=== PATIENT | female | born 1995 | race Caucasian/White ===

== ENCOUNTER → 2017-03-19 | Outpatient (CLI) | payer OTHER ==
[2017-03-19 09:45] LABS: CH 31.5; CHCM 33.5; HCT 36.6 % (34.0-46.0); HDW 2.97; HGB 12.1 gm/dL (11.4-16.0); MCH 31.4 pg (25.0-35.0); MCHC 33.1 g/dL (31.0-37.0); MCV 94.7 fL (80.0-100.0); Mean Platelet Volume 8.3; RBC 3.86 m/uL (3.80-5.40); RDW 15.3 % (11.5-15.5); WBC 7.8 k/uL (3.8-10.6)
[2017-03-19 10:10] LABS: Glucose 84 mg/dL (74-99); Non-African American GFR(MDRD) >60 (>60 ml/min/1.73 sqM)
[2017-03-19 15:55] LABS: Treponemal Ab Non-Reactive (Non-Reactive)
== END | disposition home or self-care (01) ==
LOC: LABWHC1 09:13
PROVIDERS: ATTEND Obstetrics & Gynecology
DX: O26.812 Pregnancy related exhaustion and fatigue, second trimester (principal); Z3A.00 Weeks of gestation of pregnancy not specified
CPT/HCPCS: 36415; 82565; 82947; 85027; 86762; 86777; 86778; 86780; 86850; 86900; 86901; 87340; 87390

== ENCOUNTER 2017-09-11 10:03 | Inpatient (IN) | payer OTHER ==
[2017-09-11 10:31] LABS: Appearance,Urine Cloudy (Clear); Bacteria,Urine Rare /hpf; Bilirubin,Urine Negative (Negative); Blood,Urine Small (Negative); Color,Urine Yellow; Glucose,Urine (UA) Negative (Negative); Ketones,Urine Negative (Negative); Leukocyte Esterase,Urine Moderate (Negative); Mucus,Urine Many /hpf; Nitrite,Urine Negative (Negative); Protein,Urine 3+ (Negative); RBC,Urine 6 /hpf (0-5); Specific Gravity,Urine 1.027 (1.001-1.035); Squamous Epithelial Cell,Urine 13 /hpf (0-4); Urobilinogen,Urine <2.0 mg/dL (<2.0); WBC,Urine 22 /hpf (0-5)
[2017-09-11] MEDS ORDERED: LABETALOL 5 MG/ML VIAL MDV IVP PRN ×2 (11:00→11:24)
[2017-09-11 11:02] LABS: Anisocytosis Slight; Basophils % (A) 0 %; Eosinophils % (A) 0 %; HCT 33.5 % (34.0-46.0); HGB 11.2 gm/dL (11.4-16.0); Lymphocytes # (A) 1.9 k/uL (1.0-4.8); Lymphocytes % (A) 21 %; MCH 31.7 pg (25.0-35.0); MCHC 33.5 g/dL (31.0-37.0); MCV 94.6 fL (80.0-100.0); Mean Platelet Volume 8.2; Monocytes # (A) 0.3 k/uL (0-1.0); Monocytes % (A) 3 %; Neutrophils # (A) 6.6 k/uL (1.3-7.7); Neutrophils % (A) 74 %; Platelet Count 233 k/uL (150-450); Poikilocytosis Slight; RBC 3.54 m/uL (3.80-5.40); RDW 17.2 % (11.5-15.5); WBC 8.9 k/uL (3.8-10.6)
[2017-09-11] MEDS ORDERED: LABETALOL 5 MG/ML VIAL MDV ONE (11:03)
[2017-09-11 11:10] LABS: ALT 21 U/L (9-52); AST 22 U/L (14-36); Blood Urea Nitrogen 11 mg/dL (7-17); LDH 600 U/L (313-618)
[2017-09-11] MEDS ORDERED: CITRIC ACID-SODIUM CITRATE 15 ML CUP PO ONE (11:14)
[2017-09-11] MEDS ORDERED: KETOROLAC 30 MG/ML 1 ML VIAL ONE (11:40)
[2017-09-11] MEDS ORDERED: ONDANSETRON 4 MG/2 ML VIAL ONE (11:40)
[2017-09-11] MEDS ORDERED: OXYTOCIN 10 UNIT/ML 1 ML VIAL ONE (11:40)
[2017-09-11] MEDS ORDERED: MORPHINE SULFATE (PF) 0.3 MG/0.3 ML SYR ONE (11:40)
[2017-09-11] MEDS ORDERED: NALBUPHINE 10 MG/ML AMPUL ONE (11:40)
[2017-09-11 11:59] LABS: INR 0.9 (<1.2); Prothrombin Time 9.5 sec (9.0-12.0)
[2017-09-11 12:03] VITALS: BMI 44.9
[2017-09-11] MEDS ORDERED: CALCIUM CHLORIDE 500 MG in SODIUM CHLORIDE 0.9% 50 ML IVPB ONE (12:44)
[2017-09-11] MEDS ORDERED: MAGNESIUM SULFATE-WATER PMX 4 GM in WATER FOR INJECTION 1 50ML.BAG IVPB ONE (12:44)
[2017-09-11] MEDS ORDERED: diphenhydrAMINE 50 MG CAP PO PRN (12:46)
[2017-09-11] MEDS ORDERED: SIMETHICONE 80 MG CHEWABLE PO PRN (12:46)
[2017-09-11] MEDS ORDERED: Rhogam IMMUNE GLOBULIN 1,500 UNIT/1 ML IM ONE (12:46)
[2017-09-11] MEDS ORDERED: ZOLPIDEM 5 MG TAB PO PRN (12:46)
[2017-09-11] MEDS ORDERED: METOCLOPRAMIDE 5 MG/ML 2 ML VIAL IVP PRN (12:46)
[2017-09-11] MEDS ORDERED: diphenhydrAMINE 50 MG/ML 1 ML VIAL IVP PRN ×2 (12:46)
[2017-09-11] MEDS ORDERED: diphenhydrAMINE 25 MG CAP PO PRN (12:46)
[2017-09-11] MEDS ORDERED: NALOXONE 0.4 MG/ML 1 ML VIAL IV PRN (12:46)
[2017-09-11] MEDS ORDERED: ONDANSETRON 4 MG/2 ML VIAL IVP PRN (12:46)
[2017-09-11] MEDS ORDERED: LANOLIN CREAM 5 GM TUBE TOPICAL PRN (12:46)
[2017-09-11] MEDS ORDERED: ACETAMINOPHEN TAB 325 MG TAB PO PRN (12:46)
[2017-09-11] MEDS ORDERED: OXYTOCIN 20 UNITS/1000 ML NS 1,000 ML IV SCH (13:00)
[2017-09-11] MEDS: MAGNESIUM SULFATE-WATER PMX 20 GM in WATER FOR INJECTION 1 500ML.BAG IV SCH ×2 (13:28→23:03)
[2017-09-11] MEDS: LACTATED RINGERS 1,000 ML IV SCH ×2 (13:31→23:03)
[2017-09-11] MEDS: KETOROLAC 30 MG/ML 1 ML VIAL IVP SCH (18:23)
[2017-09-11] MEDS: SENNOSIDES-DOCUSATE SODIUM 1 EACH TAB PO SCH (21:23)
[2017-09-12] MEDS: KETOROLAC 30 MG/ML 1 ML VIAL IVP SCH ×3 (00:24→12:37)
[2017-09-12] MEDS: LACTATED RINGERS 1,000 ML IV SCH (06:29)
[2017-09-12 07:57] LABS: Anisocytosis Slight; Basophils % (A) 0 %; Eosinophils % (A) 0 %; HCT 28.3 % (34.0-46.0); Hypochromasia Slight; Lymphocytes # (A) 1.4 k/uL (1.0-4.8); Lymphocytes % (A) 19 %; MCH 31.3 pg (25.0-35.0); MCHC 32.4 g/dL (31.0-37.0); MCV 96.7 fL (80.0-100.0); Macrocytosis Slight; Mean Platelet Volume 8.1; Monocytes # (A) 0.3 k/uL (0-1.0); Monocytes % (A) 4 %; Neutrophils # (A) 5.5 k/uL (1.3-7.7); Neutrophils % (A) 75 %; Platelet Count 194 k/uL (150-450); Poikilocytosis Slight; RBC 2.93 m/uL (3.80-5.40); RDW 17.7 % (11.5-15.5); WBC 7.3 k/uL (3.8-10.6)
[2017-09-12 07:58] LABS: HGB 9.2 gm/dL (11.4-16.0)
[2017-09-12] MEDS: SENNOSIDES-DOCUSATE SODIUM 1 EACH TAB PO SCH ×2 (08:25→11:31)
--- NOTE | 2017-09-12 09:03 | P.HPOB ---
History of Present Illness H&P Date: 09/11/17 Chief Complaint: elevated BP 22-year-old presented to my office at 38 weeks and 3 days with an elevated blood pressure of 142/96. I further to triage for workup of preeclampsia. Her blood pressure upon arrival was 199/86. She continued to have elevated blood pressures of 150s over 100s and 160s over 90s. Most of her labs were normal except for a PC ratio of over 2. She was diagnosed with preeclampsia. heart tones were 100 4145 with moderate variability and reactive. Her cervix was closed thick and high. She was given IV labetalol to help try and control her blood pressures. Due to the fact that she is remote from delivery and has severe preeclampsia a section will be performed immediately and then she'll be placed on magnesium sulfate for seizure prophylaxis. Review of Systems All systems: negative Constitutional: Denies chills, Denies fever Eyes: denies blurred vision, denies pain Ears, nose, mouth and throat: Denies headache, Denies sore throat Cardiovascular: Denies chest pain, Denies shortness of breath Respiratory: Denies cough Gastrointestinal: Denies abdominal pain, Denies diarrhea, Denies nausea, Denies vomiting Genitourinary: Denies dysuria, Denies hematuria Musculoskeletal: Denies myalgias Integumentary: Denies pruritus, Denies rash Neurological: Denies numbness, Denies weakness Psychiatric: Denies anxiety, Denies depression Endocrine: Denies fatigue, Denies weight change Past Medical History Past Medical History: No Reported History Additional Past Medical History / Comment(s): Obstetric history: This is to place first , she's had care with me since 14 weeks gestation. Blood type is A-, antibodies negative, rubella immune, treponema antibody negative, hepatitis B negative, HIV negative, toxoplasmosis negative. Normal 1 hour glucose tolerance test, program given on 07/08/2017 at 29 weeks. History of Any Multi-Drug Resistant Organisms: None Reported Past Surgical History: No Surgical Hx Reported Past Anesthesia/Blood Transfusion Reactions: No Reported Reaction Smoking Status: Never smoker Past Alcohol Use History: None Reported Past Drug Use History: None Reported - Past Family History Mother Family Medical History: No Reported History Medications and Allergies Allergies Allergy/AdvReac Type Severity Reaction Status Date / Time No Known Allergies Allergy Verified 09/11/17 10:15 Exam Osteopathic Statement: *. No significant issues noted on an osteopathic structural exam other than those noted in the History and Physical/Consult. - Vital Signs Vital signs: Vital Signs Temp Pulse Resp BP Pulse Ox 09/12/17 08:00 97.6 F 83 17 133/83 100 09/12/17 06:00 77 150/76 09/12/17 04:00 98.5 F 88 16 119/60 100 09/12/17 02:00 81 133/74 09/12/17 00:00 98.8 F 84 16 130/73 99 09/11/17 22:00 99 148/70 09/11/17 20:00 97.0 F L 83 16 130/92 99 09/11/17 18:17 98.3 F 82 17 147/81 98 09/11/17 16:30 98.5 F 79 17 147/72 97 09/11/17 14:34 96.1 F L 84 18 125/70 98 09/11/17 14:04 67 16 127/70 97 09/11/17 13:34 66 18 129/73 99 09/11/17 13:19 76 17 128/62 99 09/11/17 13:04 73 15 125/71 96 09/11/17 12:49 74 15 123/96 99 09/11/17 12:34 96.7 F L 88 17 125/90 100 09/11/17 10:03 96.7 F L 93 18 199/86 98 Intake and Output 09/11/17 09/12/17 09/12/17 22:59 06:59 14:59 Intake Total 779.167 Output Total 40 1000 600 Balance -40 -220.833 -600 Intake: Intake, IV Titration 479.167 Amount Magnesium Sulfate-Water 479.167 Pmx 20 gm In Water For Injection 1 500ml.bag @ 2 GM/HR 50 mls/hr IV .Q10H [facility] Rx#:[id number] Oral 300 Output: Urine 1000 600 Emesis 40 Other: Voiding Method Indwelling Catheter Heart: Regular rate and rhythm Lungs: Clear to auscultation bilaterally Abdomen: Soft, nontender Extremities: Negative Homans sign, 2+ pedal edema Results Result Diagrams: 09/12/17 07:34 09/11/17 10:40 Abnormal Lab Results - Last 24 Hours (Table) 09/11/17 09/11/17 09/11/17 Range/Units 10:16 10:18 10:40 RBC 3.54 L (3.80-5.40) m/uL Hgb 11.2 L (11.4-16.0) gm/dL Hct 33.5 L (34.0-46.0) % RDW 17.2 H (11.5-15.5) % Urine Appearance Cloudy H (Clear) Urine Protein 3+ H (Negative) Urine Blood Small H (Negative) Ur Leukocyte Esterase Moderate H (Negative) Urine RBC 6 H (0-5) /hpf Urine WBC 22 H (0-5) /hpf Ur Squamous Epith Cells 13 H (0-4) /hpf Urine Bacteria Rare H (None) /hpf Urine Mucus Many H (None) /hpf U Random Total Protein >600 H (<12) mg/dL 09/12/17 Range/Units 07:34 RBC 2.93 L (3.80-5.40) m/uL Hgb 9.2 L D (11.4-16.0) gm/dL Hct 28.3 L (34.0-46.0) % RDW 17.7 H (11.5-15.5) % Urine Appearance (Clear) Urine Protein (Negative) Urine Blood (Negative) Ur Leukocyte Esterase (Negative) Urine RBC (0-5) /hpf Urine WBC (0-5) /hpf Ur Squamous Epith Cells (0-4) /hpf Urine Bacteria (None) /hpf Urine Mucus (None) /hpf U Random Total Protein (<12) mg/dL Assessment and Plan (1) Severe preeclampsia Current Visit: Yes Status: Acute Code(s): O14.10 - SEVERE PRE-ECLAMPSIA, UNSPECIFIED TRIMESTER SNOMED Code(s): 82136073 (2) 38 weeks gestation of Current Visit: Yes Status: Acute Code(s): Z3A.38 - 38 WEEKS GESTATION OF SNOMED Code(s): 27097349 Plan: 1. Prep for primary low transverse 2. Monitor blood pressures closely 3. Will place on magnesium sulfate after delivery and seizure precautions
--- NOTE | 2017-09-12 09:06 | P.OP ---
Date of Procedure: 09/11/17 Preoperative Diagnosis: 1. at 38 and 3 2. Severe preeclampsia; remote from delivery Postoperative Diagnosis: 1. at 38 and 3 2. Severe preeclampsia; remote from delivery Procedure(s) Performed: Primary low transverse Anesthesia: spinal Surgeon: Bailey Wang Candy Vendor #1: Debra Anderson Estimated Blood Loss (ml): 500 IV fluids (ml): 900 Urine output (ml): 100 Pathology: other (Placenta) Condition: stable Disposition: floor Operative Findings: Viable female, Apgars 8, 8, weight 6 lbs. 13 oz. normal uterus, tubes, ovaries. Description of Procedure: Patient was taken to the operating room where spinal anesthesia was found be adequate. She was prepped and draped in normal sterile fashion in dorsal supine position with a leftward tilt. Pfannenstiel skin incision was made the scalpel and carried through to the underlying layer of fascia with the scalpel. Fascia was incised in midline and carried bilaterally with the Davis scissors. The superior aspect of the fascial incision was grasped with Alireza clamps elevated and the underlying rectus muscles dissected off with the Davis's. Attention was then turned to inferior aspect of same incision which in a similar fashion was grasped tented up and the underlying rectus muscles dissected off with the Davis's. The rectus muscles were the midline and the peritoneum was identified tented up and entered sharply with the scalpel. The incision was extended superiorly and inferiorly with good visualization of the bladder. The bladder blade was inserted and the vesicouterine peritoneum was incised the Metzenbaums then carried bilaterally and bladder flap created digitally. A low transverse incision was then made on the uterus with the scalpel. This was carried bilaterally and digital manner. 's head delivered atraumatically, nose and mouth bulb suctioned, cord clamped and cut, handed off to waiting nurses. Apgars 8,8, weight 6 lbs. 13 oz. Placenta delivered manually, intact with three-vessel cord. The uterus is exteriorized and cleared of all clots and debris. The uterine incision was closed with 0 Vicryl in a running locked fashion. Second layer of the same sutures used in imbricating fashion to obtain excellent hemostasis. Bladder flap was then reapproximated using 2-0 Vicryl in a running fashion. Both ovaries and tubes appeared normal. The uterus was placed back into the abdomen. The peritoneum was reapproximated using 2-0 Vicryl in a running fashion. The muscles were reapproximated using 2-0 Vicryl in interrupted fashion. The fascia was reapproximated using 0 Vicryl in a running fashion. The subcutaneous tissues closed with 3-0 Vicryl running fashion. The skin was closed vipul. Patient tolerated the procedure well, sponge and instrument counts were correct times 2 and she was taken to the recovery room in stable condition.
[2017-09-12] MEDS: MAGNESIUM SULFATE-WATER PMX 20 GM in WATER FOR INJECTION 1 500ML.BAG IV SCH ×2 (09:08→19:47)
--- NOTE | 2017-09-12 09:11 | P.PNOBGPC ---
Subjective - Subjective Principal diagnosis: Status post primary low transverse for severe preeclampsia POD #1 Interval history: Patient seen and examined. She's been magnesium sulfate since delivery. Her blood pressures have been within 116 over 60s to 130s over 80s. She did have one outlier of 150/90. Her pain is well-controlled and she is tolerating clear liquids, passing flatus. Patient reports: Reports appetite normal, Reports pain well controlled, Denies nauseated [place]: doing well Objective - Vital Signs Latest vital signs: Vital Signs Temp Pulse Resp BP Pulse Ox 09/12/17 08:00 97.6 F 83 17 133/83 100 09/12/17 06:00 77 150/76 09/12/17 04:00 98.5 F 88 16 119/60 100 09/12/17 02:00 81 133/74 09/12/17 00:00 98.8 F 84 16 130/73 99 09/11/17 22:00 99 148/70 09/11/17 20:00 97.0 F L 83 16 130/92 99 09/11/17 18:17 98.3 F 82 17 147/81 98 09/11/17 16:30 98.5 F 79 17 147/72 97 09/11/17 14:34 96.1 F L 84 18 125/70 98 09/11/17 14:04 67 16 127/70 97 09/11/17 13:34 66 18 129/73 99 09/11/17 13:19 76 17 128/62 99 09/11/17 13:04 73 15 125/71 96 09/11/17 12:49 74 15 123/96 99 09/11/17 12:34 96.7 F L 88 17 125/90 100 09/11/17 10:03 96.7 F L 93 18 199/86 98 Intake and Output 09/11/17 09/12/17 09/12/17 22:59 06:59 14:59 Intake Total 779.167 Output Total 40 1000 600 Balance -40 -220.833 -600 Intake: Intake, IV Titration 479.167 Amount Magnesium Sulfate-Water 479.167 Pmx 20 gm In Water For Injection 1 500ml.bag @ 2 GM/HR 50 mls/hr IV .Q10H [facility] Rx#:[id number] Oral 300 Output: Urine 1000 600 Emesis 40 Other: Voiding Method Indwelling Catheter - Exam Lungs: bilateral: normal Chest: Normal S1, Normal S2 Extremities: Present: normal Abdomen: Present: normal appearance, soft. Absent: distention, tenderness Incision: Present: normal, dry, intact Uterus: Present: normal, firm - Labs Labs: Abnormal Lab Results - Last 24 Hours (Table) 09/11/17 09/11/17 09/11/17 Range/Units 10:16 10:18 10:40 RBC 3.54 L (3.80-5.40) m/uL Hgb 11.2 L (11.4-16.0) gm/dL Hct 33.5 L (34.0-46.0) % RDW 17.2 H (11.5-15.5) % Urine Appearance Cloudy H (Clear) Urine Protein 3+ H (Negative) Urine Blood Small H (Negative) Ur Leukocyte Esterase Moderate H (Negative) Urine RBC 6 H (0-5) /hpf Urine WBC 22 H (0-5) /hpf Ur Squamous Epith Cells 13 H (0-4) /hpf Urine Bacteria Rare H (None) /hpf Urine Mucus Many H (None) /hpf U Random Total Protein >600 H (<12) mg/dL 09/12/17 Range/Units 07:34 RBC 2.93 L (3.80-5.40) m/uL Hgb 9.2 L D (11.4-16.0) gm/dL Hct 28.3 L (34.0-46.0) % RDW 17.7 H (11.5-15.5) % Urine Appearance (Clear) Urine Protein (Negative) Urine Blood (Negative) Ur Leukocyte Esterase (Negative) Urine RBC (0-5) /hpf Urine WBC (0-5) /hpf Ur Squamous Epith Cells (0-4) /hpf Urine Bacteria (None) /hpf Urine Mucus (None) /hpf U Random Total Protein (<12) mg/dL Assessment and Plan (1) Severe preeclampsia Current Visit: Yes Status: Acute Code(s): O14.10 - SEVERE PRE-ECLAMPSIA, UNSPECIFIED TRIMESTER SNOMED Code(s): 80793909 (2) 38 weeks gestation of Current Visit: Yes Status: Resolved Code(s): Z3A.38 - 38 WEEKS GESTATION OF SNOMED Code(s): 50133020 (3) Status post primary low transverse section Current Visit: Yes Status: Acute Code(s): Z98.891 - HISTORY OF UTERINE SCAR FROM PREVIOUS SURGERY SNOMED Code(s): 490336704 Plan: 1. We will discontinue magnesium sulfate today 2. Discontinue Nash catheter 3. The patient up out of bed and ambulating today 4. Monitor blood pressures closely and if her blood pressures rise may need to start a medication to keep them under control. 5. Start oral pain medication 6. Regular diet
--- NOTE | 2017-09-12 09:13 | P.MSEPDOC ---
Presenting Problems - Arrival Data Date of Arrival on Unit: 09/11/17 Time of Arrival on Unit: 11:00 Mode of Transport: Ambulatory - Complaint OB-Reason for Admission/Chief Complaint: NST, PIH Comment: Sent from office for pre-eclampsia labs by Dr. Wang Medical History - Information : 1 Para: 0 Term: 0 : 0 Abortions: Spontaneous or Elective: 0 Number of Living Children: 0 - Gestational Age Gestational Age by SHY (wks/days): 38 Weeks and 3 Days Review of Systems - Review of Systems Constitutional: No problems Breast: No problems ENT: No problems Cardiovascular: No problems Respiratory: No problems Gastrointestinal: No problems Genitourinary: No problems Musculoskeletal: No problems Neurological: No problems Skin: No problems Vital Signs - Temperature Temperature: 97.6 F Temperature Source: Oral - Pulse Pulse Oximetery Pulse Rate: 83 Pulse Assessment Method: Pulse Oximetry - Respirations Respiratory Rate: 17 Oxygen Delivery Method: Room Air O2 Sat by Pulse Oximetry: 100 - Blood Pressure Right Arm Blood Pressure: 133/83 Blood Pressure Mean: 99 Blood Pressure Source: Automatic Cuff Medical Screen Scoring (Pre) - Cervical Exam Dilation: Exam Deferred Effacement: Exam Deferred Membranes: Intact - Uterine Contractions Frequency: N/A Duration: N/A Intensity: N/A - Maternal Vital Signs Maternal Temperature: N/A Maternal Blood Pressure: Systolic >139 = 2 Signs of Preeclampsia: N/A Maternal Respirations: N/A - Pain Assessment Pain Scale Used: Numeric (1 - 10) Pain Intensity: 0 - Maternal Trauma Maternal Trauma: N/A - Assessment Baseline FHR: 140 Heart Rate - NICHD Category: Category I (Normal) = 0 NST: Reactive Position: N/A Station: N/A - Total Score Total Score (Pre): 2 - Level of Risk Level of Risk: Low (0-5) Physician Notification (Pre) - Physician Notified Physician Notified Date: 09/11/17 Physician Notified Time: 10:56 Physician/Practitioner Notifed:: Felipe Spoke With: Felipe - Notification Comment Comment: Patient was sent from office for labs. Order for PT/INR, labetolol. Disposition - Disposition OB Disposition: Admit I agree with the RN Medical Screening Exam: Yes Physician's MSE Comment: Pt was admitted and taken for due to severe pre-eclampsia and remote from delivery at 38 weeks 3 days Risk & Benefit of care provided described in d/c instruction: Yes Diagnosis: SEVERE PRE-ECLAMPSIA, UNSPECIFIED TRIMESTER
[2017-09-12] MEDS: HYDROcodone/APAP 7.5-325MG 1 EACH TAB PO PRN ×2 (11:31→18:55)
[2017-09-12] MEDS: IBUPROFEN 600 MG TAB PO PRN ×2 (15:19→23:31)
[2017-09-13] MEDS: HYDROcodone/APAP 7.5-325MG 1 EACH TAB PO PRN ×3 (04:56→18:56)
[2017-09-13] MEDS: SENNOSIDES-DOCUSATE SODIUM 1 EACH TAB PO SCH ×2 (08:33→19:53)
[2017-09-13] MEDS: IBUPROFEN 600 MG TAB PO PRN ×3 (08:34→21:22)
--- NOTE | 2017-09-13 10:01 | P.PNOBGPC ---
Subjective - Subjective Principal diagnosis: S/P 1*LTCS POD #2 Interval history: Pt seen and examined. Denies N/V, F/C, CP, SOB, calf pain. Patient reports: Reports appetite normal, Reports voiding normally, Reports pain well controlled, Reports ambulating normally [place]: doing well Objective - Vital Signs Latest vital signs: Vital Signs Temp Pulse Resp BP Pulse Ox 09/13/17 08:00 98.1 F 98 19 154/97 99 09/13/17 04:58 98.6 F 85 16 132/87 100 09/12/17 23:35 98.5 F 93 18 147/90 100 09/12/17 19:49 98.8 F 93 18 128/77 100 09/12/17 15:55 98.4 F 93 18 145/83 100 09/12/17 14:00 97.6 F 88 18 145/76 100 09/12/17 12:05 143/77 09/12/17 12:00 98.8 F 86 18 157/97 99 09/12/17 10:00 97.0 F L 91 18 137/82 99 Intake and Output 09/12/17 09/13/17 09/13/17 22:59 06:59 14:59 Output Total 800 Balance -800 Output: Urine 800 Other: # Voids 1 - Exam Lungs: bilateral: normal Chest: Normal S1, Normal S2 Extremities: Present: normal Abdomen: Present: normal appearance, soft. Absent: distention, tenderness Incision: Present: normal, dry, intact Uterus: Present: normal, firm Assessment and Plan (1) Severe preeclampsia Current Visit: Yes Status: Acute Code(s): O14.10 - SEVERE PRE-ECLAMPSIA, UNSPECIFIED TRIMESTER SNOMED Code(s): 40541343 (2) 38 weeks gestation of Current Visit: Yes Status: Resolved Code(s): Z3A.38 - 38 WEEKS GESTATION OF SNOMED Code(s): 20724449 (3) Status post primary low transverse section Current Visit: Yes Status: Acute Code(s): Z98.891 - HISTORY OF UTERINE SCAR FROM PREVIOUS SURGERY SNOMED Code(s): 157809763 Plan: 1. increase ambulation 2. Monitor blood pressures closely and if her blood pressures rise may need to start a medication to keep them under control. 3. continue oral pain medication
--- NOTE | 2017-09-13 13:02 | P.PN ---
Progress Note - Text Date: 09/12/2017 Time: 1208 The patient is status post section Vital signs stable VAS: 0-10 Patient has no complaints of pain. The patient incurred some minimal itching yesterday, this itching is now subsiding. Pain meds to be managed by service.
[2017-09-13] MEDS ORDERED: LABETALOL 200 MG TAB PO STA (14:57)
[2017-09-13] MEDS: LABETALOL 200 MG TAB PO SCH (21:22)
[2017-09-14] MEDS: HYDROcodone/APAP 7.5-325MG 1 EACH TAB PO PRN ×3 (00:33→13:17)
[2017-09-14] MEDS: IBUPROFEN 600 MG TAB PO PRN ×2 (03:26→09:37)
--- NOTE | 2017-09-14 07:29 | P.DS ---
Providers Date of admission: 09/11/17 11:09 Expected date of discharge: 09/14/17 Attending physician: Bailey Wang Primary care physician: Stated None - Discharge Diagnosis(es) (1) Severe preeclampsia Current Visit: Yes Status: Acute (2) 38 weeks gestation of Current Visit: Yes Status: Resolved (3) Status post primary low transverse section Current Visit: Yes Status: Acute Hospital Course: Patient presented to my office with elevated blood pressures. She came to triage and was diagnosed with severe preeclampsia. She underwent a primary low transverse because she was remote from delivery. After delivery she was placed magnesium sulfate for 24 hours. Her blood pressures did start to rise again after the magnesium sulfate was showed also sutures placed on labetalol 200 mg twice daily. Her blood pressures are 140s over 70s now. Her pain is well-controlled she is tolerating regular diet passing flatus. She denies headache, nausea, vomiting, chest pain, shortness of breath, right upper quadrant pain or any vision changes. She'll be discharged home postoperative day #3 in stable condition to follow-up with me in 1 week. Plan - Discharge Summary New Discharge Prescriptions: New HYDROcodone/APAP 7.5-325MG [[place] 7.5-325] 1 each PO Q6H PRN #20 tab PRN Reason: Severe Pain Ibuprofen [Motrin] 600 mg PO Q6HR PRN #30 tab PRN Reason: Mild Pain Or Fever >= 100.5 Labetalol [Trandate] 200 mg PO BID #60 tab Discharge Medication List HYDROcodone/APAP 7.5-325MG [[place] 7.5-325] 1 each PO Q6H PRN #20 tab 09/14/17 [ Rx] Ibuprofen [Motrin] 600 mg PO Q6HR PRN #30 tab 09/14/17 [Rx] Labetalol [Trandate] 200 mg PO BID #60 tab 09/14/17 [Rx] Follow up Appointment(s)/Referral(s): Bailey Wang DO [Doctor of Osteopathic Medicine] - 1 Week Discharge Disposition: HOME SELF-CARE
[2017-09-14] MEDS: SENNOSIDES-DOCUSATE SODIUM 1 EACH TAB PO SCH (08:40)
[2017-09-14] MEDS: LABETALOL 200 MG TAB PO SCH (08:40)
[2017-09-14 08:51] VITALS: BP 152/73; PULSE 98; RESP 18; TEMP 98.8
== END 2017-09-14 13:47 | disposition home or self-care (01) | DRG 766 ==
LOC: FBPOP 10:03 → 4FBP 11:09
PROVIDERS: ADMIT Obstetrics & Gynecology; ATTEND Obstetrics & Gynecology
PROC: 3E0234Z Introduction of Serum, Toxoid and Vaccine into Muscle, Percutaneous Approach (ICD-10-PCS; 2017-09-11)
PROC: 10D00Z1 Extraction of Products of Conception, Low, Open Approach (ICD-10-PCS; principal; 2017-09-11 12:02)
DX: O14.14 Severe pre-eclampsia complicating childbirth (principal); O26.893 Other specified pregnancy related conditions, third trimester; Z67.11 Type A blood, Rh negative; Z37.0 Single live birth; Z3A.38 38 weeks gestation of pregnancy; Z80.1 Family history of malignant neoplasm of trachea, bronchus and lung; Z82.49 Family history of ischemic heart disease and other diseases of the circulatory system; Z83.3 Family history of diabetes mellitus; Z82.79 Family history of other congenital malformations, deformations and chromosomal abnormalities
CPT/HCPCS: 59025; 81001; 82565; 82570; 83615; 84156; 84450; 84460; 84520; 84550; 85025; 85461; 85610; 86850; 86900; 86901; 88307; 96360; 96375; 99215